=== PATIENT | female | born 1950 | race Caucasian/White ===

== ENCOUNTER 2021-02-24 12:04 | Emergency (ER) | payer OTHER ==
[~2021-02-24] VITALS: Ht 167.6 cm; Wt 64.4 kg
[~2021-02-24 12:04] MED LIST: ALLERGY RELIEF PO; ANTIVERT 25MG T25 MG PO; ATORVASTATIN CA10 MG PO; CBD PO; CENTRUM SILVER1 EAC1 PO; CITALOPRAM PO; COZAAR25 MG PO; EFFEXOR 37.537.5 MG PO; ESTRIOL VG; GLUCOSAMINE &1 EAC1 PO; KEFLEX500 MG PO; LOVENOX SY40 MG/0.4 INJ; MEGA BIOTIN10000 MCG PO; MELATONIN10 M2 PO; METFORMIN HCL500 M2 PO; MIRALAX17 GM PO; NORCO 5-325 TA1 EACH PO; NORCO 7.5-3251 EACH PO; OMEPRAZOLE40 MG PO; RANITIDINE HCL300 MG PO; TRAZODONE HCL100 MG PO; TYLENOL ARTHRITIS PO; VITAMIN B12 PO; VITAMIN D31000 UNIT PO
[2021-02-24 13:01] LABS: HEMOGLOBIN 13.8 gm/dl (12.3-15.3); RED BLOOD COUNT 4.69 M/UL (4.00-5.10); WHITE BLOOD COUNT 6.6 K/UL (4.5-11.0)
[2021-02-24 13:26] LABS: BUN/CREATININE RATIO 17 (0-10)
[2021-02-24] MEDS ORDERED: CEPHALEXIN500 MG PO (14:36)
[2021-02-24] MEDS ORDERED: PROAIR HFA8.5 GM INH (14:36)
[2021-02-24] MEDS ORDERED: ONDANSETRON ODT4 MG SL (14:36)
== END 2021-02-24 16:10 | disposition home or self-care (01) ==
LOC: ER1 12:04
PROVIDERS: Physician Assistant
DX: Z23 Encounter for immunization (principal); U07.1 COVID-19; N39.0 Urinary tract infection, site not specified; E78.5 Hyperlipidemia, unspecified; E11.9 Type 2 diabetes mellitus without complications; I10 Essential (primary) hypertension; Z90.710 Acquired absence of both cervix and uterus; Z88.5 Allergy status to narcotic agent
CPT/HCPCS: 36600; 70450; 71045; 80053; 81001; 82550; 82553; 82803; 83874; 84484; 85025; 87086; 93005; 96374; 99284; J2405; M0243

== ENCOUNTER 2021-04-15 15:33 | Emergency (ER) | payer OTHER ==
[~2021-04-15 15:33] MED LIST changes: +CEPHALEXIN500 MG PO; +ONDANSETRON ODT4 MG SL; +PROAIR HFA8.5 GM INH
[2021-04-15 17:37] LABS: HEMOGLOBIN 13.6 gm/dl (12.3-15.3); RED BLOOD COUNT 4.63 M/UL (4.00-5.10)
== END 2021-04-15 21:45 | disposition home or self-care (01) ==
LOC: ER1 15:33
PROVIDERS: Nurse Practitioner
DX: S09.90XA Unspecified injury of head, initial encounter (principal); S16.1XXA Strain of muscle, fascia and tendon at neck level, initial encounter; S40.011A Contusion of right shoulder, initial encounter; S20.211A Contusion of right front wall of thorax, initial encounter; S70.02XA Contusion of left hip, initial encounter; S30.0XXA Contusion of lower back and pelvis, initial encounter; S39.91XA Unspecified injury of abdomen, initial encounter; I10 Essential (primary) hypertension; Z86.73 Personal history of transient ischemic attack (TIA), and cerebral infarction without residual deficits; Z79.82 Long term (current) use of aspirin; Z79.899 Other long term (current) drug therapy; W19.XXXA Unspecified fall, initial encounter
CPT/HCPCS: 70450; 70486; 71045; 72125; 73020; 73030; 80053; 82550; 82553; 83874; 84484; 85025; 93005; 99284; Q9967

== ENCOUNTER → 2021-06-16 | Outpatient (CLI) | payer OTHER | LOC: CT 09:45 | DX: R90.89 Other abnormal findings on diagnostic imaging of central nervous system (principal); Z00.00 Encounter for general adult medical examination without abnormal findings | CPT/HCPCS: 36415; 70496; 70498; 82565; 84520; Q9967 ==

== ENCOUNTER → 2021-07-06 | Outpatient (CLI) | payer OTHER | LOC: EXRD 10:15 | DX: R17 Unspecified jaundice (principal); N13.30 Unspecified hydronephrosis; K80.20 Calculus of gallbladder without cholecystitis without obstruction | CPT/HCPCS: 76700 ==